=== PATIENT | male | born 1985 | race Caucasian/White ===

== ENCOUNTER → 2017-07-17 | Outpatient (CLI) | payer BC | END | disposition home or self-care (01) | LOC: KCIC 10:00 | DX: S69.91XD Unspecified injury of right wrist, hand and finger(s), subsequent encounter (principal); M25.441 Effusion, right hand; X58.XXXD Exposure to other specified factors, subsequent encounter | CPT/HCPCS: 73110; 73130 ==

== ENCOUNTER → 2017-10-09 | Outpatient (CLI) | payer BC ==
[2017-10-09] MEDS: GADOBUTROL 7.5 MMOL/7.5 ML VIAL INT ART (15:21)
[2017-10-09] MEDS: IOHEXOL 300 MG/ML 50 ML VIAL. INT ART (15:21)
[2017-10-09] MEDS: LIDOCAINE 1% Multi-Dose 20 ML VIAL. ID (15:21)
== END | disposition home or self-care (01) ==
LOC: KCIC 14:13
DX: S63.511A Sprain of carpal joint of right wrist, initial encounter (principal); R60.0 Localized edema; X58.XXXA Exposure to other specified factors, initial encounter; Y93.89 Activity, other specified; Y92.89 Other specified places as the place of occurrence of the external cause; Y99.8 Other external cause status
CPT/HCPCS: 73115; 73222; A9585; Q9967